=== PATIENT | female | born 1940 | race African-American/Black ===

== ENCOUNTER 2016-06-03 06:03 | Day surgery (SDC) | payer BC ==
[~2016-06-03] VITALS: Ht 162.6 cm; Wt 77.4 kg
[2016-06-03] MEDS ORDERED: lisinopril (07:35)
[2016-06-03] MEDS ORDERED: amiodarone (07:35)
[2016-06-03] MEDS ORDERED: metformin (07:35)
[2016-06-03] MEDS ORDERED: aspirin (07:35)
[2016-06-03 07:36] VITALS: Ht 162.6 cm; Wt 77.4 kg
[2016-06-03 07:37] VITALS: BP 122/69; PULSE 78; RESP 18
[2016-06-03] MEDS ORDERED: LIDOCAINE 2% (SDV) 5 ML INJ ONE (07:38)
[2016-06-03] MEDS ORDERED: PROPOFOL 40 ML ONE ×2 (07:38→08:19)
--- NOTE | 2016-06-04 04:41 | GILP ---
DATE OF PROCEDURE: 06/03/2016 NAME OF PROCEDURE: Colonoscopy and biopsy. SURGEON: Jay Garcia MD PREOPERATIVE DIAGNOSES: History of colon polyps. POSTOPERATIVE DIAGNOSES: 1. Colonoscopy all the way to the cecum. 2. Two small colon polyps were removed using the biopsy forceps. 3. Internal hemorrhoids. INDICATION FOR THE PROCEDURE: Ms. Marta Cole is a 75-year-old female patient who had history of colon polyps. The patient was scheduled for a followup colonoscopy. The procedure and possible complications were well explained to the patient. The patient understood and consented to the procedure. DESCRIPTION OF PROCEDURE: Under the influence of anesthesia, the colonoscope was carefully introduc ed in the rectum and under direct vision, it was advanced all the way to the cecum. FINDINGS: The patient had 2 small colon polyps, one in the right colon and another one in the sigmo id colon and they were removed using the biopsy forceps. She was noted to have internal hemorrhoids . She tolerated the procedure very well and there was no complication from the procedure. At the end of the procedure, she was awake with stable vital signs and she was discharged home to the care of h family. IMPRESSION: 1. Colonoscopy all the way to the cecum. 2. Two small colon polyps were removed using the biopsy forceps. 3. Internal hemorrhoids. PLAN: 1. Await histopathology report. 2. Next screening colonoscopy in 5 years. Dictated By: JAY GONZALEZ/CARMEN Conf#: [id number] DID#: [id number]
== END 2016-06-03 09:19 | disposition home or self-care (01) ==
LOC: GIL 06:03
PROVIDERS: ATTEND Internal Medicine Gastroenterology
DX: Z12.11 Encounter for screening for malignant neoplasm of colon (principal); K63.5 Polyp of colon; K64.8 Other hemorrhoids; I10 Essential (primary) hypertension; E11.9 Type 2 diabetes mellitus without complications
CPT/HCPCS: 45380; 82962; 88305; Z7610